=== PATIENT | male | born 1960 | race Asian ===

== ENCOUNTER → 2021-02-22 15:36 | Outpatient (CLI) | payer SELFPAY ==
[2021-02-25 15:51] LABS: SARS CoV19 IgG Negative (Negative); SARS-CoV19- IgM Negative (Negative)
== END ==
PROVIDERS: PCP Physician Assistant; Visit Provider Physician Assistant
DX: Z11.59 Encounter for screening for other viral diseases (principal)
CPT/HCPCS: 86769

== ENCOUNTER → 2022-03-30 13:47 | Outpatient (CLI) | payer OTHER, SELFPAY ==
[2022-03-30 15:33] LABS: Add Manual Diff / Slide Review NO; Basophils Absolute Auto 100 /uL (0-100); Eosinophils Absolute Auto 100 /uL (0-450); Eosinophils Percent Auto 2.6 % (2-4); Hematocrit 46.3 % (41-53); Hemoglobin 15.6 g/dL (13.5-17.5); Lymphocytes Absolute Auto 2100 /uL (1100-4500); Lymphocytes Percent Auto 38.8 % (25-40); Mean Corpuscular HGB Conc 33.7 % (30-36); Mean Corpuscular Hemoglobin 29.4 PG (26-34); Mean Corpuscular Volume 87.2 fL (80-100); Monocytes Absolute Auto 600 /uL (0-900); Neutrophils Absolute Auto 2600 /uL (1500-7000); Neutrophils Percent Auto 47.6 % (50-75); Platelet Count 175 X10^3/uL (150-400); Red Blood Cell Count 5.31 X10^6/uL (4.5-5.9); Red Cell Distribution Width 14.4 % (11.6-14.8); White Blood Cell Count 5.5 X10^3/uL (4.5-11.0)
[2022-03-30 15:50] LABS: Alanine Aminotransferase 25 IU/L (<50); Albumin 4.6 g/dL (3.5-5.0); Albumin Globulin Ratio 1.3 (1.0-2.8); Alkaline Phosphatase 63 U/L (38-126); Aspartate Aminotransferase 30 IU/L (17-59); BUN Creatinine Ratio 21.5 (6-22); Bilirubin Total 1.1 mg/dL (0.2-1.3); Blood Urea Nitrogen 20 mg/dL (9-20); Calcium 9.7 mg/dL (8.4-10.2); Carbon Dioxide 27 mmol/L (22-32); Chloride 104 mmol/L (98-107); Cholesterol 239 mg/dL (140-199); Estimated Glomerular Filt Rate > 60 mL/min (>60); Globulin 3.6 g/dL (1.7-4.1); Glucose 96 mg/dL (80-110); HDL Cholesterol 47 mg/dL (40-60); HEMOLYSIS < 15 (0-50); LDL Cholesterol Calculated 177 mg/dL (<100); Potassium 4.7 mmol/L (3.4-5.1); Sodium 140 mmol/L (137-145); Total Protein 8.2 g/dL (6.3-8.2); Triglycerides 73 mg/dL (35-150)
[2022-03-30 16:15] LABS: TSH w/ Reflex to FT4 1.16 uIU/mL (0.47-4.68)
== END ==
PROVIDERS: PCP Physician Assistant; Referring Provider Physician Assistant; Visit Provider Physician Assistant
DX: R01.1 Cardiac murmur, unspecified (principal); R06.02 Shortness of breath; Z13.220 Encounter for screening for lipoid disorders; Z13.6 Encounter for screening for cardiovascular disorders
CPT/HCPCS: 36415; 80053; 80061; 84443; 85025

== ENCOUNTER → 2022-05-15 11:00 | Outpatient (CLI) | payer OTHER, SELFPAY | PROVIDERS: PCP Physician Assistant; Referring Provider Physician Assistant; Visit Provider Physician Assistant | DX: Z53.20 Procedure and treatment not carried out because of patient's decision for unspecified reasons (principal) ==

== ENCOUNTER → 2022-07-24 09:36 | Outpatient (CLI) | payer OTHER, SELFPAY ==
[2022-07-24 10:14] LABS: Cholesterol 200 mg/dL (140-199); HDL Cholesterol 59 mg/dL (40-60); LDL Cholesterol Calculated 126 mg/dL (<100); Triglycerides 74 mg/dL (35-150)
== END ==
PROVIDERS: PCP Physician Assistant; Referring Provider Internal Medicine Cardiovascular Disease; Visit Provider Internal Medicine Cardiovascular Disease
DX: E78.2 Mixed hyperlipidemia (principal)
CPT/HCPCS: 36415; 80061

== ENCOUNTER 2022-09-21 08:30 | Outpatient (RCR) | payer OTHER, SELFPAY | END 2022-09-21 14:30 | LOC: CAR 08:30 | PROVIDERS: PCP Physician Assistant; Referring Provider Thoracic Surgery (Cardiothoracic Vascular Surgery); Visit Provider Thoracic Surgery (Cardiothoracic Vascular Surgery) | DX: Z98.890 Other specified postprocedural states (principal) | CPT/HCPCS: 93798 ==

== ENCOUNTER → 2022-10-16 08:06 | Outpatient (CLI) | payer OTHER, SELFPAY ==
--- NOTE | 2022-10-16 08:16 | DI.ECHO.S_ITS ---
Interpretation Summary Normal left ventricle size with ejection fraction 50-55%. Left ventricular systolic function is low normal. An annuloplasty ring is noted in the mitral position. An annuloplasty ring is noted in the tricuspid position. Mild to moderate tricuspid regurgitation. Procedure: A two-dimensional transthoracic echocardiogram with color flow and Doppler was performed. The study quality was technically adequate. There is no prior echocardiogram noted for this patient. The patient was in sinus rhythm with heart rates between 56-71 bpm during the exam. Left Ventricle: The left ventricle is normal in size and wall thickness. The ejection fraction is estimated to be 50-55%. Left ventricular systolic function is low normal. There are no focal wall motion abnormalities. Diastolic function could not be accurately assessed due to confounding valvular disease. Right Ventricle: The right ventricle is grossly normal size. Right ventricular systolic function is at the lower limits of normal. Atria: The left atrial size is normal. Right atrial size is normal. There is no Doppler evidence for an interatrial shunt. Mitral Valve: An annuloplasty ring is noted in the mitral position. There is a 34mm [employer] model #5200 ring. There is trace mitral regurgitation. Aortic Valve: The aortic valve is trileaflet. The aortic valve opens well. There is no aortic valve stenosis. No aortic regurgitation is present. Tricuspid Valve: An annuloplasty ring is noted in the tricuspid position. There is a 32mm [employer] Model #6200 ring. 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 There is mild to moderate tricuspid regurgitation. Pulmonic Valve: The pulmonic valve leaflets are thin and pliable; valve motion is normal. There is trace pulmonic regurgitation. Great Vessels: The aortic root is normal size. The dimensions of the ascending aorta are normal. The IVC is of normal diameter and collapses greater than 50% with a sniff. This suggests a low right atrial pressure of 3 mm Hg. Pericardium/ Pleura There is no pericardial effusion. There is no pleural effusion. MMode/2D Measurements & Calculations LVIDd: 4.9 cm LVOT diam: 2.2 cm LVIDs: 3.9 cm Ao root diam: 3.7 cm FS: 19.9 % asc Aorta Diam: 3.7 cm EPSS: 1.4 cm Ao Arch Diam (Prox Trans): 3.1 cm IVSd: 1.0 cm LVPWd: 0.84 cm LV aly. diameter/BSA (cm/m^2): 2.4 LV sys. diameter/BSA (cm/m^2): 1.9 LA A2 area: 18.2 cm2 RA long axis: 4.7 cm LA A4 area: 21.3 cm2 RA area: 15.6 cm2 LA length (vol): 5.4 cm RA vol: 44.2 ml LA vol: 60.6 ml RA : 21.2 ml/m2 LA vol index: 29.1 ml/m2 IVC diam: 2.0 cm RVD1 (basal): 3.9 cm RVD2 (mid): 3.9 cm TAPSE: 1.7 cm Doppler Measurements & Calculations Ao V2 max: 118.3 cm/sec LVOT Max Ez: 79.9 cm/sec Ao V2 mean: 79.0 cm/sec LV V1 max P.6 mmHg Ao max P.6 mmHg LV V1 VTI: 15.9 cm Ao mean P.9 mmHg SHANNAN(I,D): 2.5 cm2 Ao V2 VTI: 24.5 cm SHANNAN(V,D): 2.6 cm2 sev ratio: 0.65 SHANNAN indexed to BSA (cm^2/m^2): 1.2 MV E max ez: 99.1 cm/sec PA V2 max: 100.2 cm/sec MV A max ez: 142.1 cm/sec PA V2 mean: 66.6 cm/sec MV E/A: 0.70 PA mean P.0 mmHg Med Peak E' Ez: 4.9 cm/sec PA pr(Accel): 46.5 mmHg E/E' med: 20.1 Lat Peak E' Ez: 8.8 cm/sec E/E' lat: 11.3 E/e' average: 15.7 MV dec time: 0.27 sec MVA(VTI): 1.4 cm2 MV V2 mean: 84.2 cm/sec SV(LVOT): 60.8 ml MV mean P.4 mmHg MV V2 VTI: 44.8 cm Electronically signed by: Kimberly Orozco on Reading Physician:10/16/2022 11:41 AM
== END ==
PROVIDERS: PCP Physician Assistant; Referring Provider Physician Assistant; Visit Provider Physician Assistant
DX: I07.1 Rheumatic tricuspid insufficiency (principal); R01.1 Cardiac murmur, unspecified; R06.02 Shortness of breath
CPT/HCPCS: 93306

== ENCOUNTER 2024-02-12 08:35 | Emergency (ER) | payer OTHER, SELFPAY ==
[2024-02-12 08:42] VITALS: BP 155/84; PULSE 74; RESP 18; TEMP 36.3; O2SAT 99; BMI 25.5
--- NOTE | 2024-02-12 09:12 | ED.SKABFB ---
HPI - Skin/Abscess/Foreign Bdy General Chief complaint: Skin/Abscess/Foreign Body Stated complaint: tick bite wants to get it check Time Seen by Provider: 02/12/24 09:05 Source: patient Mode of arrival: Ambulatory Limitations: no limitations History of Present Illness HPI narrative: Patient here for evaluation of tick bite to the left lower abdominal skin area. Patient states he hikes very regularly. This past Sunday he did go hiking on a trail. Before his hike he did not notice any tick bites on his body. He has noticed a tick bites to his dog. When he came home Sunday he noticed a tick bite/tick on his skin and he pulled it off. He thinks it was slightly swollen. However the tick was on his skin less than 3 hours. He has not had any fever chills body aches chills no trouble breathing no palpitations no rash, he thought it was circular bull's-eye at 1st but then it disappeared. No arthralgia. No headache. He states he has no symptoms. Patient states he is up-to-date with Tdap Related Data Home Medications Medication Instructions Recorded Confirmed metoprolol succinate 25 mg 12.5 mg PO BID 07/07/22 tablet,extended release 24 hr Previous Rx's Medication Instructions Recorded atorvastatin 10 mg tablet (Lipitor) 10 mg PO BEDTIME #30 tabs 04/04/22 doxycycline monohydrate 100 mg 100 mg PO BID #20 caps 02/12/24 capsule Allergies Allergy/AdvReac Type Severity Reaction Status Date / Time No Known Drug Allergies Allergy Verified 02/12/24 09:25 Review of Systems Review of Systems Narrative: GENERAL: negative chills, fatigue, malaise, fever, sweats. HEENT: negative sinus pain, ear pain, sore throat RESPIRATORY: negative dyspnea, cough CARDIOVASCULAR: negative chest pain, palpitations GASTROINTESTINAL: negative nausea, vomiting, abdominal pain : negative dysuria, frequency, hematuria MUSCULOSKELETAL: negative muscle or bony pain SKIN: Positive rash, skin lesions NEUROLOGIC: negative weakness, numbness ROS Unobtainable: All systems reviewed & are unremarkable except as noted in HPI and below Patient History Medical History Eczema (~2011) Sleep apnea (~2004) Allergies Family History Father Hyperlipidemia Hypertension Mother Arthritis Social History Smoking Status: Former smoker Smoking Status: Former smoker alcohol intake frequency: other Substance Use Type: marijuana Exam Narrative Exam Narrative: GENERAL: in no distress, not toxic not dyspneic HEAD: Normocephalic. EYES: Pupils equal round ENT: Mucous membranes moist. NECK: Trachea midline. CARDIOVASCULAR: Regular rate and rhythm RESPIRATORY: Clear to auscultation. Breath sounds equal bilaterally. No wheezes, rales, or rhonchi. GASTROINTESTINAL: Abdomen soft, non-tender EXTREMITIES: No gross deformities. BACK: No flank tenderness. NEURO: AOx4. SKIN: Warm and dry, there is small circular area of erythema induration at the left lower quadrant abdomen. No fluctuance. No red streaking. Not bull's-eye pattern. It is 5 mm in diameter. Slight induration below this. No oozing. It is dry. Not vesicular. PSYCH: Not anxious, is cooperative Initial Vital Signs Initial Vital Signs: Vital Signs Temperature 97.4 F L 02/12/24 08:42 Pulse Rate 74 02/12/24 08:42 Respiratory Rate 18 02/12/24 08:42 Blood Pressure 155/84 H 02/12/24 08:42 Pulse Oximetry 99 02/12/24 08:42 Oxygen Delivery Method Room Air 02/12/24 08:42 Course Orders Ordered: Discontinued Medications Doxycycline Hyclate (Doxycycline Hyclate 100 Mg Tablet) 100 mg PO NOW ONE Stop: 02/12/24 09:11 Last Admin: 02/12/24 09:24 Dose: 100 mg Documented By: MATT Vital Signs Vital signs: Vital Signs - 8 hr 02/12/24 08:42 Temperature 97.4 F L Pulse Rate 74 Respiratory Rate 18 Blood Pressure 155/84 H Pulse Oximetry 99 Oxygen Delivery Method Room Air MDM - Skin/Abscess/Foreign Bdy Lab Data 02/12/24 09:37 02/12/24 09:37 Labs: Lab Results 02/12/24 Range/Units 09:37 WBC 4.2 L (4.5-11.0) X10^3/uL RBC 5.26 (4.5-5.9) X10^6/uL Hgb 15.2 (13.5-17.5) g/dL Hct 46.0 (41-53) % MCV 87.4 (80-100) fL MCH 28.8 (26-34) PG MCHC 33.0 (30-36) % RDW 14.3 (11.6-14.8) % Plt Count 197 (150-400) X10^3/uL Neut % (Auto) 43.4 L (50-75) % Lymph % (Auto) 43.9 H (25-40) % Wilkes % (Auto) 7.9 (3-14) % Eos % (Auto) 4.2 H (2-4) % Baso % (Auto) 0.6 (0-2) % Neut # (Auto) 1800 (0035-1722) /uL Lymph # (Auto) 1800 (3268-1506) /uL Wilkes # (Auto) 300 (0-900) /uL Eos # (Auto) 200 (0-450) /uL Baso # (Auto) 0 (0-100) /uL Sodium 138 (137-145) mmol/L Potassium 4.6 (3.4-5.1) mmol/L Chloride 108 H (98-107) mmol/L Carbon Dioxide 26 (22-32) mmol/L BUN 21 H (9-20) mg/dL Creatinine 0.75 (0.66-1.25) mg/dL Estimated GFR > 60 (>60) mL/min BUN/Creatinine Ratio 28.0 H (6-22) Glucose 97 (80-110) mg/dL Calcium 9.6 (8.4-10.2) mg/dL Total Bilirubin 0.6 (0.2-1.3) mg/dL AST 24 (17-59) IU/L ALT 21 (<50) IU/L Alkaline Phosphatase 63 (38-126) U/L Total Protein 8.1 (6.3-8.2) g/dL Albumin 4.3 (3.5-5.0) g/dL Globulin 3.8 (1.7-4.1) g/dL Albumin/Globulin Ratio 1.1 (1.0-2.8) Lyme IgG 18 kDa Band Absent (.) Lyme IgG 23 kDa Band Absent (.) Lyme IgG 28 kDa Band Absent (.) Lyme IgG 39 kDa Band Absent (.) Lyme IgG 58 kDa Band Absent (.) Lyme IgG 66 kDa Band Absent (.) Lyme IgG 93 kDa Band Absent (.) Lyme IgG W Blot Interp Negative (.) Lyme IgM Ab (WB) Negative (.) Lyme IgM 23 kDa Band Absent (.) Lyme IgM 39 kDa Band Absent (.) Lyme IgM 41 kDa Band Absent (.) [facility] Narrative Medical decision making narrative: Patient here for evaluation of tick bite to the left lower abdominal skin area. Patient states he hikes very regularly. This past Sunday he did go hiking on a trail. Before his hike he did not notice any tick bites on his body. He has noticed a tick bites to his dog. When he came home Sunday he noticed a tick bite/tick on his skin and he pulled it off. He thinks it was slightly swollen. However the tick was on his skin less than 3 hours. He has not had any fever chills body aches chills no trouble breathing no palpitations no rash, he thought it was circular bull's-eye at 1st but then it disappeared. No arthralgia. No headache. He states he has no symptoms. Patient states he is up-to-date with Tdap After history and exam Lyme titer/Brian Connors [facility] Medical records reviewed: No recent visit for this complaint Differential considered: Includes but not limited to cellulitis Lyme [place] Lab Test results independently reviewed as above. Pertinent findings: Labs are send outs for [place] and Lyme Treatments: Doxycycline Re-evaluations: Patient agrees with treatment plan. Doxycycline will be started. Labs are pending and are send out and he will follow up and we will as well. If positive will continue further out longer duration. Return precautions reviewed. He desires discharge home Discussion: Appropriate for discharge home exam is reassuring. Doxycycline will be started to treat cellulitis as well as possible Lyme/[place], labs are pending and patient agrees and understands to follow up and will continue further if they are positive. However 10 day course appropriate for treatment return precautions reviewed. He desires discharge home. No EKG or imaging indicated this time. Patient has no no cardiopulmonary or osseous complaints. Diagnosis: Tick bite/cellulitis Discharge Plan Departure Patient Disposition: Home Clinical Impression: Tick bite Qualifiers: Encounter type: initial encounter Site of tick bite: abdominal wall Qualified Code(s): S30.861A - Insect bite (nonvenomous) of abdominal wall, initial encounter Instructions: DI for [place] Spotted Fever, DI for Lyme Disease, Protect Yourself from Tickborne Illnesses Activity Restrictions/Additional Instructions: Laboratory studies are send outs. You will need to follow up for these results, we will be looking for results as well. Please see your family doctor in a week for re-evaluation. Please do continue and finish the full course of the antibiotics as it is covering for skin infection from the tick bite but also will cover for possible tick bite infection. Return if worse if any questions or concerns Prescriptions: New doxycycline monohydrate 100 mg capsule 100 mg PO BID Qty: 20 0RF No Action atorvastatin [Lipitor] 10 mg tablet 10 mg PO BEDTIME Qty: 30 2RF metoprolol succinate 25 mg tablet extended release 24 hr 12.5 mg PO BID Referrals: Bhakti Maravilla PA-C [Primary Care Provider] - Stand Alone Forms: Patient Portal/API
[2024-02-12] MEDS: DOXYCYCLINE HYCLATE 100 MG TABLET PO (09:24)
[2024-02-12 09:46] LABS: Add Manual Diff / Slide Review NO; Basophils Absolute Auto 0 /uL (0-100); Basophils Percent Auto 0.6 % (0-2); Eosinophils Absolute Auto 200 /uL (0-450); Eosinophils Percent Auto 4.2 % (2-4); Hemoglobin 15.2 g/dL (13.5-17.5); Lymphocytes Absolute Auto 1800 /uL (1100-4500); Lymphocytes Percent Auto 43.9 % (25-40); Mean Corpuscular Hemoglobin 28.8 PG (26-34); Mean Corpuscular Volume 87.4 fL (80-100); Monocytes Absolute Auto 300 /uL (0-900); Monocytes Percent Auto 7.9 % (3-14); Neutrophils Absolute Auto 1800 /uL (1500-7000); Neutrophils Percent Auto 43.4 % (50-75); Platelet Count 197 X10^3/uL (150-400); Red Blood Cell Count 5.26 X10^6/uL (4.5-5.9); Red Cell Distribution Width 14.3 % (11.6-14.8); White Blood Cell Count 4.2 X10^3/uL (4.5-11.0)
[2024-02-12 10:09] LABS: Alanine Aminotransferase 21 IU/L (<50); Albumin 4.3 g/dL (3.5-5.0); Albumin Globulin Ratio 1.1 (1.0-2.8); Alkaline Phosphatase 63 U/L (38-126); Aspartate Aminotransferase 24 IU/L (17-59); Bilirubin Total 0.6 mg/dL (0.2-1.3); Blood Urea Nitrogen 21 mg/dL (9-20); Calcium 9.6 mg/dL (8.4-10.2); Carbon Dioxide 26 mmol/L (22-32); Chloride 108 mmol/L (98-107); Estimated Glomerular Filt Rate > 60 mL/min (>60); Globulin 3.8 g/dL (1.7-4.1); Glucose 97 mg/dL (80-110); HEMOLYSIS < 15 (0-50); Potassium 4.6 mmol/L (3.4-5.1); Sodium 138 mmol/L (137-145); Total Protein 8.1 g/dL (6.3-8.2)
[2024-02-14 21:07] LABS: 18 kD IgG Band Absent (.); 23 kD IgG Band Absent (.); 28 kD IgG Band Absent (.); 30 kD IgG Band Absent (.); 39 kD IgG Band Absent (.); 41 kD IgG Bands Absent (.); 45 kD IgG Band Absent (.); 58 kD IgG Band Absent (.); 66 kD IgG Band Absent (.); IgG P93 AB Absent (.); IgM P23 AB Absent (.); IgM P39 AB Absent (.); IgM P41 AB Absent (.); Lyme IgG Line Blot Interpretat Negative (.); Lyme IgM Line Blot Interpretat Negative (.)
== END 2024-02-12 09:58 | disposition home or self-care (01) ==
PROVIDERS: Emergency Provider Emergency Medicine; PCP Physician Assistant
DX: S30.861A Insect bite (nonvenomous) of abdominal wall, initial encounter (principal); W57.XXXA Bitten or stung by nonvenomous insect and other nonvenomous arthropods, initial encounter
CPT/HCPCS: 36415; 80053; 85025; 86617; 86757; 99283

== ENCOUNTER → 2024-02-28 07:15 | Outpatient (CLI) | payer OTHER, SELFPAY ==
[2024-02-28 08:57] LABS: Cholesterol 273 mg/dL (140-199); HDL Cholesterol 61 mg/dL (40-60); LDL Cholesterol Calculated 190 mg/dL (<100); Triglycerides 110 mg/dL (35-150)
== END ==
LOC: LAB 07:17
PROVIDERS: PCP Physician Assistant; Referring Provider Internal Medicine Cardiovascular Disease; Visit Provider Internal Medicine Cardiovascular Disease
DX: E78.00 Pure hypercholesterolemia, unspecified (principal)
CPT/HCPCS: 36415; 80061